=== PATIENT | male | born 1995 | race African-American/Black ===

== ENCOUNTER 2020-04-23 03:39 | Inpatient (IN) | payer OTHER ==
[~2020-04-23] VITALS: Ht 165.1 cm; Wt 63.8 kg
[2020-04-23 03:39] VITALS: BP 138/98
[2020-04-23 04:17] LABS: ANION GAP 11 mmol/L (7-16); BUN 20 mg/dL (7-18); CALCIUM 8.2 mg/dL (8.5-10.1); CHLORIDE 106 mmol/L (98-107); CO2 23 mmol/L (21-32); GLUCOSE 128 mg/dL (74-106); SODIUM 140 mmol/L (136-145)
[2020-04-23 04:18] LABS: POTASSIUM 4.1 mmol/L (3.5-5.1)
[2020-04-23 04:28] LABS: ALBUMIN 2.6 g/dL (3.4-5.0); MAGNESIUM 1.8 mg/dL (1.8-2.4); PHOSPHORUS 3.1 mg/dL (2.6-4.7); SGOT 41 U/L (15-37); SGPT 32 U/L (16-63); TOTAL BILIRUBIN 0.5 mg/dL (0.2-1.0); TOTAL PROTEIN 6.9 g/dL (6.4-8.2); TROPONIN-I <0.06 ng/mL (<0.06)
[2020-04-23 04:42] LABS: HEMOGLOBIN 9.9 gm/dL (14.0-18.0); WBC 2.7 thou/uL (4.0-11.0)
[2020-04-23 04:46] LABS: HEMATOCRIT 31.2 % (42.0-52.0); MCH 25.8 pg (26.0-34.0); MCHC 31.7 g/dL (28.0-37.0); MCV 81.3 fL (80.0-100.0); PLATELET COUNT 220 thou/uL (150-400); RBC 3.84 mil/uL (4.50-6.00); RDW 15.5 % (10.5-14.5)
[2020-04-23 05:28] LABS: ABSOLUTE NEUTROPHILS 0.9 thou/uL (1.4-8.2); ANISOCYTOSIS 1+; LARGE PLATELETS OCCASIONAL; NUCLEATED RBCS 1 /100WBC; POIKILOCYTOSIS 1+
--- NOTE | 2020-04-23 14:18 | EKG ---
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: JOSÉ MIGUEL : 1995 Requested By: Johnny Pascal Order Number: [id number] MD: Ko Stallings Measurements Intervals [place] Rate: 117 P: 64 MA: 130 QRS: 12 QRSD: 80 T: 208 QT: 344 QTc: 480 Interpretive Statements Sinus tachycardia Nonspecific ST and T wave abnormality Prolonged QT interval No previous ECG available for comparison Electronically Signed On 04-23-2020 14:18:52 CLINICAL RESEARCH ANALYST by Ko Stallings [email or web address] <ELECTRONICALLY SIGNED> By: Ko Stallings MD, [facility] 04/23/20 1418 0351 0351 Ko Stallings MD, FACC /EPI
--- NOTE | 2020-04-23 16:38 | HC ---
[facility] [place] [address] CONSULTATION Name: PÉREZ TAN Room #: 170-6 ADM IN M.R.#: [id number] Admission: 04/23/20 Attend Phys: Deng Hu MD Discharge: Date of : [birth year] Report #: [id number] THIS REPORT FOR: cc: FAM - No family physician/PCP FAM - No family physician/PCP Hebert Diaz MD ~ DATE OF SERVICE: 04/23/2020 INFECTIOUS DISEASE CONSULTATION ATTENDING PHYSICIAN: Dr. Hu. REASON FOR EVALUATION: HIV management. HISTORY OF SUBJECTIVE: Chart reviewed, the patient examined. This is a 24-year-old gentleman with known HIV disease. He states diagnosed in 2018, had been followed intermittently had been on therapy. He describes Biktarvy about a month ago when he discontinued due to a red splotchy rash. He noted prior to discontinuation, his viral load has been undetectable. He is not certain about his CD4 count. He was over the course of the last 2 weeks, diagnosed with pneumonitis. He was treated with a 7-day course of antibiotics for which he took 5 days. He has had ongoing issues with breathing difficulties, cough, also more recently has had obstipation with no bowel movement last several days, presented to the Emergency Room complaining of increasing shortness of breath, mucus production with productive cough while there earlier today apparently had a seizure, which had not been notable in his previous history, and elevated proBNP of 10,102. Influenza antigen was negative. COVID antigen was negative as well. Lactic acid 1.3. CBC did show leukopenia as well as anemia. CTA chest PE protocol showed no evidence of PE, cardiomegaly, bilateral mild infiltrates, question of a multifocal pneumonia, characteristically does not have appearance similar to COVID related pneumonitis. Plain film of the abdomen showed nonobstructive bowel gas pattern. He was given a dose of azithromycin and ceftriaxone as well. ALLERGIES: None known. MEDICATIONS: Include above noted antibiotics, senna, guaifenesin, ipratropium and albuterol inhaler. PAST MEDICAL HISTORY: As described above, HIV, previous right leg surgery. 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 FAMILY HISTORY: Noncontributory. [facility] [address] [place] [address] CONSULTATION Name: PÉREZ TAN Room #: 170-6 ADM IN M.R.#: [id number] Admission: 04/23/20 Attend Phys: Deng Hu MD Discharge: Date of : [birth year] Report #: [id number] REVIEW OF SYSTEMS: Otherwise, denies any recent fevers. Does have occasional chills. No weight loss. PHYSICAL EXAMINATION: GENERAL: He is mildly encephalopathic, appears to be reasonably well nourished, somewhat lethargic, still mildly postictal, mild distress. VITAL SIGNS: Temperature 97.4, pulse 114, respirations , blood pressure 121/88. SKIN: Warm, dry, no rashes. HEENT: Normocephalic. Extraocular muscles intact. NECK: Supple. LUNGS: Generally clear to auscultation bilaterally. HEART: Regular. I do not appreciate any murmur. ABDOMEN: Mildly distended, soft. There are no overt peritoneal signs. GENITOURINARY AND RECTAL: Deferred. LABORATORY DATA: As described above. CBC: White count 2.7, H and H 9.9 and 31.2, platelets of 220, 4% bands. He has got actually normal amount of lymphocytes of 33%, which was roughly 900 total. He did have 22% eosinophils as well. There is question of hypersensitivity. Lactic acid 1.3. ASSESSMENT: Human immunodeficiency virus infections, based on history. We will try to obtain records from his previous clinician. At this point, we would evaluate in terms of possible infectious causes based on the history suggest he has got a significant degree of immunosuppression for the long-term in terms of apparently undetectable viral load only diagnosed within the last couple of years, although it can entirely exclude. We will continue empiric antibiotics at this point, do additional testing. In terms of the seizure noted, Neurology has been consulted. We will work in conjunction may well need a lumbar puncture to exclude again an occult process is not entirely sure what the neutropenia related to as well as eosinophilia. <ELECTRONICALLY SIGNED> By: Hebert Diaz MD 04/23/20 1638 1006 1058 Hebert Diaz MD /nt
[2020-04-23 20:43] LABS: URINE BILIRUBIN NEGATIVE (Negative); URINE BLOOD NEGATIVE (Negative); URINE CLARITY CLEAR; URINE COLOR YELLOW; URINE GLUCOSE-RANDOM* NEGATIVE (Negative); URINE KETONES NEGATIVE (Negative); URINE LEUKOCYTES NEGATIVE (Negative); URINE NITRITE NEGATIVE (Negative); URINE PROTEIN (DIPSTICK) NEGATIVE (Negative); URINE UROBILINOGEN 0.2 E.U./dl (0.2-1.0)
[2020-04-23 20:49] LABS: AMP/METHAMP POSITIVE (Negative); BARBITURATES Negative (Negative); BENZODIAZEPINES Negative (Negative); COCAINE Negative (Negative); METHADONE Negative (Negative); OPIATES Negative (Negative); PCP Negative (Negative)
[2020-04-24] VITALS (112 sets, daily range): BP systolic 34–176; BP diastolic 13–155
[2020-04-24 05:13] LABS: HEMOGLOBIN 10.6 gm/dL (14.0-18.0); MCH 24.7 pg (26.0-34.0); MCHC 30.4 g/dL (28.0-37.0); MCV 81.4 fL (80.0-100.0); RBC 4.3 mil/uL (4.50-6.00); RDW 15.6 % (10.5-14.5); WBC 2.9 thou/uL (4.0-11.0)
[2020-04-24 06:03] LABS: CALCIUM 8.1 mg/dL (8.5-10.1); CREATININE 1.3 mg/dL (0.7-1.3); POTASSIUM 4.2 mmol/L (3.5-5.1)
--- NOTE | 2020-04-24 07:39 | 2DMMODE ---
[facility] [address] [place] [address] 2 D/M-MODE ECHOCARDIOGRAM Name: PÉREZ TAN Room #: 238-P ADM IN M.R.#: [id number] Admission: 04/23/20 Attend Phys: Deng Hu MD Discharge: Date of : [birth year] Report #: [id number] THIS REPORT FOR: cc: FAM - No family physician/PCP FAM - No family physician/PCP Ko Stallings MD [facility] ~ APPROVED REPORT Study performed: 04/24/2020 07:01:28 EXAM: Comprehensive 2D, Doppler, and color-flow Echocardiogram Patient Location: Bedside Room #: 238 Status: stat BSA: 1.65 HR: 103 bpm BP: 117/93 mmHg Rhythm: NSR Other Information Study Quality: Good Indications Dyspnea Elevated BNP S/P Code 2D Dimensions LV Single Plane 4CH: 11.28 % LV Single Plane 2CH: 21.51 % Biplane EF: 17.7 % Tricuspid Valve TR Peak Foreign.: 1.59 m/s RAP Estimate: 10.00 mmHg TR Peak Gr.: 10.17 mmHg PA Pressure: 20.00 mmHg Left Ventricle The left ventricle is normal size. There is global hypokinesis of the left ventricle. There is normal left ventricular wall thickness. Left ventricular systolic function is severely decreased. LVEF 15-20%. Right Ventricle [address] [address] 2 D/M-MODE ECHOCARDIOGRAM Name: PÉREZ TAN Room #: 238-P ADM IN M.R.#: [id number] Admission: 04/23/20 Attend Phys: Deng Hu MD Discharge: Date of : [birth year] Report #: [id number] The right ventricle is normal size. Right ventricle is mildly hypokinetic. Atria The left atrium size is normal. The right atrium size is normal. Aortic Valve The aortic valve is normal in structure. No aortic regurgitation is present. There is no aortic valvular stenosis. Mitral Valve The mitral valve is normal in structure. Moderate mitral regurgitation. No evidence of mitral valve stenosis. Tricuspid Valve The tricuspid valve is normal in structure. Moderate to severe tricuspid regurgitation. Pulmonary artery pressure is 20 mmHg. Pulmonic Valve The pulmonary valve is normal in structure. Mild pulmonic regurgitation. Great Vessels The aortic root is normal in size. IVC is dilated and collapses >50% with inspiration. Pt. on ventilator. Pericardium Small pericardial effusion without tamponade physiology. <Conclusion> Left ventricular systolic function is severely decreased. There is global hypokinesis of the left ventricle. LVEF 15-20%. The aortic valve is normal in structure. No aortic regurgitation or stenosis. The mitral valve is normal in structure. Moderate mitral regurgitation. Moderate to severe tricuspid regurgitation. Pulmonary artery pressure [address] [address] 2 D/M-MODE ECHOCARDIOGRAM Name: PÉREZ TAN Room #: 238-P ADM IN M.R.#: [id number] Admission: 04/23/20 Attend Phys: Deng Hu MD Discharge: Date of : [birth year] Report #: [id number] of 20 mmHg. Small pericardial effusion without tamponade physiology. <ELECTRONICALLY SIGNED> By: Ko Stallings MD, FACC 04/24/20738 8 8 Ko Stallings MD, FACC /INF
[2020-04-24 07:49] LABS: HEMATOCRIT 35.1 % (42.0-52.0); MCHC 28.6 g/dL (28.0-37.0); RBC 4.02 mil/uL (4.50-6.00); RDW 16.9 % (10.5-14.5); WBC 5.2 thou/uL (4.0-11.0)
[2020-04-24 07:50] LABS: ANION GAP 22 mmol/L (7-16); BUN 21 mg/dL (7-18); CALCIUM 7.6 mg/dL (8.5-10.1); CHLORIDE 109 mmol/L (98-107); CO2 13 mmol/L (21-32); CREATININE 1.8 mg/dL (0.7-1.3); GLUCOSE 113 mg/dL (74-106); MCV 87.3 fL (80.0-100.0); SODIUM 144 mmol/L (136-145)
[2020-04-24 07:52] LABS: ALBUMIN 2.2 g/dL (3.4-5.0); SGOT 115 U/L (15-37); SGPT 75 U/L (30-65); TOTAL BILIRUBIN 0.4 mg/dL (0.2-1.0); TOTAL PROTEIN 5.8 g/dL (6.4-8.2)
[2020-04-24 07:56] LABS: POTASSIUM 5.6 mmol/L (3.5-5.1)
[2020-04-24 08:04] LABS: APTT 35.5 Seconds (24.5-32.8); INR 1.2; PROTIME 12.8 Seconds (9.3-11.4)
[2020-04-24 08:17] LABS: TROPONIN-I <0.06 ng/mL (<0.06)
[2020-04-24 08:33] LABS: BE(vivo) -20.1 mmol/L (-2 to +3); HCO3 8.6 mmol/L (22.0-26.0); PCO2 29.9 mmHg (35.0-45.0); PO2 621.4 mmHg (80.0-100.0); sO2 99.9 % (92.0-98.0)
[2020-04-24 08:35] LABS: pH 7.077 (7.360-7.450)
[2020-04-24 09:01] LABS: MAGNESIUM 2.1 mg/dL (1.8-2.4); PHOSPHORUS 8.2 mg/dL (2.5-4.9)
--- NOTE | 2020-04-24 09:05 | EKG ---
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 : 1995 Requested By: May Arnold Order Number: [id number] MD: Ko Stallings Measurements Intervals [place] Rate: 99 P: 75 MA: 143 QRS: 28 QRSD: 67 T: 132 QT: 427 QTc: 549 Interpretive Statements Sinus rhythm RSR' in V1 or V2, probably normal variant Nonspecific repol abnormality, diffuse leads Prolonged QT interval Compared to ECG 04/23/2020 03:51:23 Nonspecific change in the ST and T wave segments Electronically Signed On 04-24-2020 9:05:28 RESIDENTIAL INSTRUCTOR by Ko Stallings [email or web address] <ELECTRONICALLY SIGNED> By: Ko Stallings MD, FACC 04/24/20 0905 0735 Ko Stallings MD, [facility] /EPI
[2020-04-24 10:47] LABS: CALCIUM 7.1 mg/dL (8.5-10.1); CREATININE 1.9 mg/dL (0.7-1.3)
[2020-04-24 10:53] LABS: POTASSIUM 6.1 mmol/L (3.5-5.1)
[2020-04-24 11:02] LABS: BE(vivo) -13.3 mmol/L (-2 to +3); PCO2 31.6 mmHg (35.0-45.0); PO2 291.9 mmHg (80.0-100.0); sO2 99.6 % (92.0-98.0)
[2020-04-24 11:05] LABS: pH 7.233 (7.360-7.450)
--- NOTE | 2020-04-24 11:18 | HC ---
[facility] [place] [address] CONSULTATION Name: PÉREZ TAN Room #: 238-P ADM IN M.R.#: [id number] Admission: 04/23/20 Attend Phys: Deng Hu MD Discharge: Date of : [birth year] Report #: [id number] THIS REPORT FOR: cc: FAM - No family physician/PCP FAM - No family physician/PCP Miller Sena MD [facility] ~ DATE OF SERVICE: 04/23/2020 CARDIOLOGY CONSULTATION HISTORY OF PRESENT ILLNESS: The patient is a 24-year-old male, HIV positive. He has been dealing with recurrent pneumonia, bronchial pneumonia, bronchitis, and pneumonitis since January. He has not been in this hospital before today, when he presented to the Emergency Room last night. He apparently was not completed on his last course of antibiotics. He is also in between his HIV medicines. He is down here going to [place] and he is trying to get an LIGHTER. Also, some history of a relatively recent onset seizure. It looks like he really has not been taking any of the appropriate medications and stopped the antibiotics. The chest x-ray had some cardiomegaly, some cephalization consistent with some pulmonary edema. CTA did not reveal any evidence of a PE. He is currently going to have a CT of his abdomen and pelvis. He had been taking Zithromax. He got dose of ceftriaxone here, lorazepam to calm him down. LABORATORY DATA: Potassium 4.1, creatinine 1.0. Liver function tests were normal. AST was 41. Troponin was negative. H and H are 9.9 and 31.2. White count 2.7. Blood cultures have been sent. The BNP was elevated over 10,000. SOCIAL HISTORY: He lives down here with his partner. He has an alternative lifestyle. He is a half a pack a day smoker, social drinker. FAMILY HISTORY: Negative for premature coronary artery disease. PAST MEDICAL HISTORY: Positive for the HIV, his recurrent bronchitis, pneumonia issue for the last 2 months and leg surgery. PHYSICAL EXAMINATION: GENERAL: He is not in distress. Pulse is 120. VITAL SIGNS: Blood pressure 134/90. HEENT: Eyes reveal xanthelasmas. Pharynx is clear. NECK: Shows preserved upstrokes without any significant JVD or bruits. LUNGS: Few fine basilar crackles, otherwise clear anteriorly. CARDIOVASCULAR: Tachycardic, S1 and S2. No significant murmur, narrowly split second heart sound. ABDOMEN: Diffusely tender, more in the right upper quadrant, although bowel sounds are noted. [address] [address] CONSULTATION Name: PÉREZ TAN Room #: 238-P [facility] IN M.R.#: [id number] Admission: 04/23/20 Attend Phys: Deng Hu MD Discharge: Date of : [birth year] Report #: [id number] EXTREMITIES: Reveal no edema. Pulses intact. NEUROLOGIC: Nonfocal. SKIN: Warm and dry without xanthoma or ulcer. Multiple tattoos. ASSESSMENT: 1. Cardiomegaly with mild volume overload with elevated BNP and chest x-ray supporting this. 2. Bronchitis/pneumonia with multiple occurrences in the last 2 months. Currently being treated with IV antibiotics. 3. Human immunodeficiency virus positive, currently off of his triple therapy. 4. COVID is pending, although this clinical presentation does not appear to be COVID pneumonia. 5. EKG, sinus tachycardia with nonspecific ST abnormalities, do not expect ischemia in a 24-year-old male. 6. Anemia. RECOMMENDATIONS AND PLAN: We will IV Lasix, Infectious Disease recommendations. Repeat a chest x-ray in the morning. Echo Doppler in the morning. Certainly could represent either some component of HIV involvement of myocarditis would be less likely. Multiple potential causes for cardiomyopathy in this young male. We will follow with you. <ELECTRONICALLY SIGNED> By: Miller Sena MD, FACC 04/24/20 1118 1026 1136 Miller Sena MD, FACC /nt
[2020-04-24 13:11] LABS: ALBUMIN 1.9 g/dL (3.4-5.0); DIRECT BILIRUBIN 0.4 mg/dL (<0.1-0.2); TOTAL BILIRUBIN 0.8 mg/dL (0.2-1.0); TOTAL PROTEIN 5.5 g/dL (6.4-8.2); TROPONIN-I 0.13 ng/mL (<0.06)
[2020-04-24 14:08] LABS: HEMATOCRIT 33.6 % (42.0-52.0); HEMOGLOBIN 10.1 gm/dL (14.0-18.0); RBC 3.94 mil/uL (4.50-6.00); WBC 4.6 thou/uL (4.0-11.0)
[2020-04-24 14:10] LABS: MCH 25.7 pg (26.0-34.0); MCHC 30.1 g/dL (28.0-37.0); MCV 85.3 fL (80.0-100.0); PLATELET COUNT 129 thou/uL (150-400); RDW 16.3 % (10.5-14.5)
[2020-04-24 14:15] LABS: CALCIUM 6.1 mg/dL (8.5-10.1); CREATININE 1.8 mg/dL (0.7-1.3); MAGNESIUM 1.6 mg/dL (1.8-2.4)
[2020-04-24 14:21] LABS: POTASSIUM 6.2 mmol/L (3.5-5.1)
[2020-04-24 15:27] LABS: ABSOLUTE NEUTROPHILS 2.9 thou/uL (1.4-8.2); METAMYELOCYTES 1 %
[2020-04-24 15:28] LABS: ANISOCYTOSIS 1+; PLATELET ESTIMATE NORMAL; SCHISTOCYTES RARE
[2020-04-24 16:27] LABS: APTT 36.6 Seconds (24.5-32.8); INR 1.6; PROTIME 16.9 Seconds (9.3-11.4)
[2020-04-24 19:55] LABS: HEMOGLOBIN 10.8 gm/dL (14.0-18.0); MCH 25.5 pg (26.0-34.0); MCHC 30.7 g/dL (28.0-37.0); PLATELET COUNT 127 thou/uL (150-400); RBC 4.21 mil/uL (4.50-6.00); RDW 16.2 % (10.5-14.5)
[2020-04-24 20:04] LABS: APTT 33.5 Seconds (24.5-32.8); CALCIUM 6.3 mg/dL (8.5-10.1); INR 1.5; MAGNESIUM 1.6 mg/dL (1.8-2.4); PHOSPHORUS 5.3 mg/dL (2.6-4.7); PROTIME 16.5 Seconds (9.3-11.4)
[2020-04-24 20:07] LABS: POTASSIUM 4.2 mmol/L (3.5-5.1)
[2020-04-24 20:22] LABS: ABSOLUTE NEUTROPHILS 4.7 thou/uL (1.4-8.2); METAMYELOCYTES 1 %
[2020-04-24 20:23] LABS: ANISOCYTOSIS 1+
[2020-04-25] VITALS (86 sets, daily range): BP systolic 81–129; BP diastolic 37–98
[2020-04-25 05:32] LABS: HEMATOCRIT 35.4 % (42.0-52.0); MCH 25.3 pg (26.0-34.0); MCV 81.8 fL (80.0-100.0); PLATELET COUNT 109 thou/uL (150-400); RBC 4.33 mil/uL (4.50-6.00); RDW 15.9 % (10.5-14.5); WBC 4.6 thou/uL (4.0-11.0)
[2020-04-25 06:04] LABS: APTT 33.5 Seconds (24.5-32.8); INR 1.5; PROTIME 16.1 Seconds (9.3-11.4)
[2020-04-25 06:28] LABS: CALCIUM 6.9 mg/dL (8.5-10.1); POTASSIUM 3.5 mmol/L (3.5-5.1)
[2020-04-25 06:29] LABS: MAGNESIUM 1.4 mg/dL (1.8-2.4); PHOSPHORUS 4.6 mg/dL (2.5-4.9); TROPONIN-I 0.18 ng/mL (<0.06)
[2020-04-25 07:12] LABS: HCO3 19.8 mmol/L (22.0-26.0); PCO2 35.8 mmHg (35.0-45.0); PO2 176.8 mmHg (80.0-100.0); pH 7.361 (7.360-7.450); sO2 99.2 % (92.0-98.0)
[2020-04-25 08:44] LABS: ABSOLUTE NEUTROPHILS 3.4 thou/uL (1.4-8.2); PLATELET ESTIMATE NORMAL
[2020-04-26] VITALS (85 sets, daily range): BP systolic 96–124; BP diastolic 50–82
[2020-04-26 04:55] LABS: HEMATOCRIT 32.3 % (42.0-52.0); HEMOGLOBIN 10.2 gm/dL (14.0-18.0); MCH 25.4 pg (26.0-34.0); MCHC 31.7 g/dL (28.0-37.0); MCV 80.1 fL (80.0-100.0); RBC 4.03 mil/uL (4.50-6.00); RDW 15.6 % (10.5-14.5); WBC 4.9 thou/uL (4.0-11.0)
[2020-04-26 05:21] LABS: BE(vivo) -1.5 mmol/L (-2 to +3); HCO3 22.5 mmol/L (22.0-26.0); PCO2 35.3 mmHg (35.0-45.0); PO2 142.7 mmHg (80.0-100.0); pH 7.422 (7.360-7.450); sO2 98.9 % (92.0-98.0)
[2020-04-26 05:24] LABS: ALBUMIN 1.9 g/dL (3.4-5.0); CALCIUM 7.1 mg/dL (8.5-10.1); CREATININE 2.4 mg/dL (0.7-1.3); PHOSPHORUS 5.1 mg/dL (2.5-4.9); POTASSIUM 3.3 mmol/L (3.5-5.1)
[2020-04-27] VITALS (74 sets, daily range): BP systolic 87–124; BP diastolic 43–91
[2020-04-27 06:12] LABS: ALBUMIN 1.8 g/dL (3.4-5.0); CALCIUM 7.3 mg/dL (8.5-10.1); CREATININE 2.3 mg/dL (0.7-1.3); PHOSPHORUS 5.5 mg/dL (2.6-4.7); POTASSIUM 4.1 mmol/L (3.5-5.1)
[2020-04-27 08:42] LABS: T-SPOT.TB Negative
[2020-04-27 20:33] LABS: SYPHILIS AB Non Reactive (Non Reactive)
[2020-04-28] VITALS (97 sets, daily range): BP systolic 88–129; BP diastolic 42–96
[2020-04-28 03:50] LABS: BE(vivo) -4.5 mmol/L (-2 to +3); HCO3 19.7 mmol/L (22.0-26.0); PCO2 33.2 mmHg (35.0-45.0); PO2 103.5 mmHg (80.0-100.0); pH 7.391 (7.360-7.450); sO2 97.8 % (92.0-98.0)
[2020-04-28 06:14] LABS: ALBUMIN 1.8 g/dL (3.4-5.0); CALCIUM 7.5 mg/dL (8.5-10.1); CREATININE 2.1 mg/dL (0.7-1.3); PHOSPHORUS 4.5 mg/dL (2.5-4.9); POTASSIUM 4.1 mmol/L (3.5-5.1)
--- NOTE | 2020-04-28 10:54 | EEG ---
[facility] [place] [address] ELECTROENCEPHALOGRAM Name: PÉREZ TAN Room #: 238-P ADM IN M.R.#: [id number] Admission: 04/23/20 Attend Phys: Deng Hu MD Discharge: Date of : [birth year] Report #: [id number] THIS REPORT FOR: //name// DATE OF SERVICE: 04/26/2020 This patient is being evaluated for encephalopathy. EEG was done by placing the electrode by standard 10-20 system of electrode placement. Both referential and sequential montages were used for recording. Background activity is slow, but goes up to 6-7 Hz. It is intermixed slowing present on both sides. Photic stimulation is unremarkable. IMPRESSION: This is an abnormal EEG because it is slow, but well-defined cortical activity is present. No active epileptiform activity was noticed. Thank you very much for this referral. <ELECTRONICALLY SIGNED> By: Shayan Ng MD 04/28/20 1054 1329 1336 Shayan Ng MD /nt
[2020-04-29] VITALS (35 sets, daily range): BP systolic 82–117; BP diastolic 49–84
[2020-04-29 05:29] LABS: HEMATOCRIT 28.8 % (42.0-52.0)
[2020-04-29 05:30] LABS: HEMOGLOBIN 8.9 gm/dL (14.0-18.0); MCH 25.2 pg (26.0-34.0); MCHC 31.1 g/dL (28.0-37.0); MCV 80.9 fL (80.0-100.0); RBC 3.56 mil/uL (4.50-6.00)
[2020-04-29 05:36] LABS: CALCIUM 7.9 mg/dL (8.5-10.1); CREATININE 1.9 mg/dL (0.7-1.3); POTASSIUM 4.2 mmol/L (3.5-5.1)
[2020-04-29 07:36] LABS: WBC 1.9 thou/uL (4.0-11.0)
[2020-04-29 13:35] LABS: ALBUMIN 1.8 g/dL (3.4-5.0); DIRECT BILIRUBIN 0.3 mg/dL (<0.1-0.2); TOTAL BILIRUBIN 0.5 mg/dL (0.2-1.0); TOTAL PROTEIN 5.8 g/dL (6.4-8.2)
[2020-04-30] VITALS (67 sets, daily range): BP systolic 91–129; BP diastolic 54–95
[2020-04-30 04:24] LABS: HEMATOCRIT 20.4 % (42.0-52.0); MCH 25.6 pg (26.0-34.0); MCHC 31.3 g/dL (28.0-37.0); MCV 81.8 fL (80.0-100.0); RBC 2.49 mil/uL (4.50-6.00); RDW 15.4 % (10.5-14.5)
[2020-04-30 04:26] LABS: WBC 1.5 thou/uL (4.0-11.0)
[2020-04-30 04:27] LABS: HEMOGLOBIN 6.4 gm/dL (14.0-18.0)
[2020-04-30 04:33] LABS: CALCIUM 7.7 mg/dL (8.5-10.1); CREATININE 1.6 mg/dL (0.7-1.3); POTASSIUM 4.2 mmol/L (3.5-5.1)
[2020-05-01] VITALS (45 sets, daily range): BP systolic 88–112; BP diastolic 49–72
[2020-05-01 05:13] LABS: ABSOLUTE RETIC COUNT 0.0476 10^6/uL; OBSERVED RETIC COUNT 1.28 % (0.6-2.6)
[2020-05-01 05:18] LABS: HEMATOCRIT 30.5 % (42.0-52.0); MCH 25.5 pg (26.0-34.0); MCHC 31.6 g/dL (28.0-37.0); MCV 80.6 fL (80.0-100.0); RBC 3.78 mil/uL (4.50-6.00); RDW 15.3 % (10.5-14.5); WBC 2.3 thou/uL (4.0-11.0)
[2020-05-01 05:19] LABS: HEMOGLOBIN 9.7 gm/dL (14.0-18.0)
[2020-05-01 05:19] LABS: BE(vivo) -4.6 mmol/L (-2 to +3); HCO3 19.7 mmol/L (22.0-26.0); PCO2 34.7 mmHg (35.0-45.0); PO2 135.5 mmHg (80.0-100.0); pH 7.373 (7.360-7.450); sO2 98.7 % (92.0-98.0)
[2020-05-01 05:36] LABS: ALBUMIN 1.6 g/dL (3.4-5.0); CALCIUM 7.8 mg/dL (8.5-10.1); CREATININE 1.3 mg/dL (0.7-1.3); TOTAL BILIRUBIN 0.5 mg/dL (0.2-1.0); TOTAL PROTEIN 6.2 g/dL (6.4-8.2)
[2020-05-01 08:30] LABS: % SATURATION 5 % (20-39); IRON 10 ug/dL (65-175); TIBC 198 ug/dL (250-450)
[2020-05-01 09:02] LABS: FOLIC ACID 3.2 ng/mL (8.6-58.9)
[2020-05-01 13:07] LABS: CD4 % 1.1 % (30.8-58.5); CD8 % 64.4 % (12.0-35.5)
[2020-05-02] VITALS (41 sets, daily range): BP systolic 80–107; BP diastolic 38–74
[2020-05-02 01:06] LABS: HAV IgM AB (ANTI-HAV IgM) Negative (Negative); HEP B SURFACE Ab(ANTI-HBS Non Reactive (()); HEPATITIS C VIRUS AB <0.1 (0.0-0.9)
[2020-05-02 08:21] LABS: HEMATOCRIT 29.2 % (42.0-52.0); HEMOGLOBIN 9.2 gm/dL (14.0-18.0)
[2020-05-02 08:23] LABS: MCH 25.6 pg (26.0-34.0); MCHC 31.4 g/dL (28.0-37.0); MCV 81.3 fL (80.0-100.0); PLATELET COUNT 130 thou/uL (150-400); RBC 3.59 mil/uL (4.50-6.00); RDW 15.7 % (10.5-14.5); WBC 2.2 thou/uL (4.0-11.0)
[2020-05-02 08:38] LABS: ALBUMIN 1.6 g/dL (3.4-5.0); CALCIUM 8.2 mg/dL (8.5-10.1); CREATININE 1.6 mg/dL (0.7-1.3); POTASSIUM 4.7 mmol/L (3.5-5.1); TOTAL BILIRUBIN 0.4 mg/dL (0.2-1.0); TOTAL PROTEIN 6.4 g/dL (6.4-8.2)
[2020-05-02 10:28] LABS: ABSOLUTE NEUTROPHILS 0.8 thou/uL (1.4-8.2); METAMYELOCYTES 2 %
[2020-05-02 13:11] LABS: OVALOCYTES 1+; TARGET CELLS FEW
[2020-05-02 13:12] LABS: POLYCHROMASIA 1+
[2020-05-03] VITALS (26 sets, daily range): BP systolic 89–102; BP diastolic 44–69
[2020-05-03 08:11] LABS: HEMOGLOBIN 8.8 gm/dL (14.0-18.0)
[2020-05-03 08:12] LABS: HEMATOCRIT 27.9 % (42.0-52.0); MCH 25.4 pg (26.0-34.0); MCHC 31.5 g/dL (28.0-37.0); MCV 80.8 fL (80.0-100.0); PLATELET COUNT 177 thou/uL (150-400); RBC 3.46 mil/uL (4.50-6.00); RDW 15.7 % (10.5-14.5)
[2020-05-03 08:17] LABS: WBC 1.9 thou/uL (4.0-11.0)
[2020-05-03 08:31] LABS: ALBUMIN 1.8 g/dL (3.4-5.0); CALCIUM 8.1 mg/dL (8.5-10.1); CREATININE 1.6 mg/dL (0.7-1.3); POTASSIUM 4.6 mmol/L (3.5-5.1); TOTAL BILIRUBIN 0.4 mg/dL (0.2-1.0); TOTAL PROTEIN 6.8 g/dL (6.4-8.2)
[2020-05-03 10:08] LABS: CD4:CD8 0.02 (0.92-3.72)
[2020-05-03 11:05] LABS: ABSOLUTE NEUTROPHILS 0.6 thou/uL (1.4-8.2); ANISOCYTOSIS 1+; ATYPICAL LYMPHS 4 %; LARGE PLATELETS OCCASIONAL; OVALOCYTES FEW; POIKILOCYTOSIS SLIGHT; TEARDROPS OCCASIONAL
[2020-05-04] VITALS (47 sets, daily range): BP systolic 88–102; BP diastolic 45–63
[2020-05-04 05:33] LABS: HEMATOCRIT 27.5 % (42.0-52.0); HEMOGLOBIN 8.7 gm/dL (14.0-18.0); MCH 25.5 pg (26.0-34.0); MCHC 31.7 g/dL (28.0-37.0); MCV 80.4 fL (80.0-100.0); PLATELET COUNT 177 thou/uL (150-400); RBC 3.42 mil/uL (4.50-6.00); WBC 2.2 thou/uL (4.0-11.0)
[2020-05-04 05:42] LABS: CALCIUM 8.2 mg/dL (8.5-10.1); CREATININE 1.7 mg/dL (0.7-1.3); TOTAL BILIRUBIN 0.3 mg/dL (0.2-1.0); TOTAL PROTEIN 6.9 g/dL (6.4-8.2)
[2020-05-04 06:44] LABS: ABSOLUTE NEUTROPHILS 1.1 thou/uL (1.4-8.2); LARGE PLATELETS FEW; NUCLEATED RBCS 1 /100WBC; PLATELET ESTIMATE NORMAL
[2020-05-04 14:08] LABS: EBV DNA log10 PCR 2.288 (())
[2020-05-05] VITALS (29 sets, daily range): BP systolic 91–112; BP diastolic 51–71
[2020-05-05 04:32] LABS: HEMOGLOBIN 8.2 gm/dL (14.0-18.0); MCV 80.5 fL (80.0-100.0); RDW 16.1 % (10.5-14.5)
[2020-05-05 04:34] LABS: HEMATOCRIT 25.6 % (42.0-52.0); MCH 25.6 pg (26.0-34.0); MCHC 31.8 g/dL (28.0-37.0); RBC 3.18 mil/uL (4.50-6.00)
[2020-05-05 04:38] LABS: WBC 1.7 thou/uL (4.0-11.0)
[2020-05-05 05:10] LABS: ALBUMIN 2.2 g/dL (3.4-5.0); CALCIUM 8.4 mg/dL (8.5-10.1); CREATININE 1.9 mg/dL (0.7-1.3); TOTAL BILIRUBIN 0.3 mg/dL (0.2-1.0)
[2020-05-05 05:54] LABS: POTASSIUM 5.2 mmol/L (3.5-5.1)
[2020-05-05 16:11] LABS: BE(vivo) -6.6 mmol/L (-2 to +3); HCO3 18.4 mmol/L (22.0-26.0); PCO2 34.3 mmHg (35.0-45.0); PO2 125.2 mmHg (80.0-100.0); pH 7.347 (7.360-7.450); sO2 98.4 % (92.0-98.0)
[2020-05-06 04:37] LABS: BE(vivo) -5.2 mmol/L (-2 to +3); HCO3 19.2 mmol/L (22.0-26.0); PO2 137.9 mmHg (80.0-100.0); pH 7.383 (7.360-7.450); sO2 98.7 % (92.0-98.0)
[2020-05-06 05:14] LABS: RBC 3.15 mil/uL (4.50-6.00)
[2020-05-06 05:16] LABS: HEMATOCRIT 25.3 % (42.0-52.0); HEMOGLOBIN 8.1 gm/dL (14.0-18.0); MCH 25.6 pg (26.0-34.0); MCHC 31.9 g/dL (28.0-37.0); MCV 80.2 fL (80.0-100.0); PLATELET COUNT 247 thou/uL (150-400); RDW 16.1 % (10.5-14.5)
[2020-05-06 05:22] LABS: WBC 1.5 thou/uL (4.0-11.0)
[2020-05-06 05:26] LABS: ALBUMIN 2.1 g/dL (3.4-5.0); CALCIUM 8.2 mg/dL (8.5-10.1); CREATININE 1.7 mg/dL (0.7-1.3); TOTAL BILIRUBIN 0.5 mg/dL (0.2-1.0); TOTAL PROTEIN 6.9 g/dL (6.4-8.2)
[2020-05-06 06:08] LABS: ABSOLUTE NEUTROPHILS 0.8 thou/uL (1.4-8.2); ANISOCYTOSIS 1+; METAMYELOCYTES 4 %
[2020-05-07] VITALS (13 sets, daily range): BP systolic 102–114; BP diastolic 52–78
[2020-05-07 05:03] LABS: HCO3 19.8 mmol/L (22.0-26.0); PCO2 35.4 mmHg (35.0-45.0); PO2 133.1 mmHg (80.0-100.0); pH 7.366 (7.360-7.450); sO2 98.6 % (92.0-98.0)
[2020-05-07 05:29] LABS: HEMATOCRIT 25.1 % (42.0-52.0); HEMOGLOBIN 8.1 gm/dL (14.0-18.0); MCH 25.7 pg (26.0-34.0); MCHC 32.2 g/dL (28.0-37.0); MCV 79.6 fL (80.0-100.0); PLATELET COUNT 266 thou/uL (150-400); RBC 3.15 mil/uL (4.50-6.00); RDW 16.1 % (10.5-14.5)
[2020-05-07 05:33] LABS: WBC 1.4 thou/uL (4.0-11.0)
[2020-05-07 06:09] LABS: CALCIUM 8.4 mg/dL (8.5-10.1); CREATININE 1.6 mg/dL (0.7-1.3); POTASSIUM 5.1 mmol/L (3.5-5.1); TOTAL BILIRUBIN 0.3 mg/dL (0.2-1.0); TOTAL PROTEIN 6.9 g/dL (6.4-8.2)
[2020-05-07 06:16] LABS: ABSOLUTE NEUTROPHILS 0.7 thou/uL (1.4-8.2); ANISOCYTOSIS 1+
[2020-05-08] VITALS (45 sets, daily range): BP systolic 95–124; BP diastolic 58–82
[2020-05-08 04:06] LABS: CALCIUM 8.7 mg/dL (8.5-10.1); CREATININE 1.5 mg/dL (0.7-1.3); POTASSIUM 4.5 mmol/L (3.5-5.1)
[2020-05-08 04:26] LABS: HEMOGLOBIN 8.4 gm/dL (14.0-18.0); RDW 15.9 % (10.5-14.5)
[2020-05-08 04:28] LABS: HEMATOCRIT 26.6 % (42.0-52.0); MCH 25.5 pg (26.0-34.0); MCHC 31.8 g/dL (28.0-37.0); MCV 80.2 fL (80.0-100.0); RBC 3.31 mil/uL (4.50-6.00)
[2020-05-08 04:30] LABS: WBC 1.4 thou/uL (4.0-11.0)
[2020-05-09] VITALS (23 sets, daily range): BP systolic 87–121; BP diastolic 45–83
[2020-05-09 05:10] LABS: HEMATOCRIT 28.4 % (42.0-52.0); HEMOGLOBIN 9.1 gm/dL (14.0-18.0); MCH 25.8 pg (26.0-34.0); MCHC 32.1 g/dL (28.0-37.0); MCV 80.4 fL (80.0-100.0); RBC 3.53 mil/uL (4.50-6.00); RDW 15.8 % (10.5-14.5)
[2020-05-09 05:13] LABS: WBC 1.5 thou/uL (4.0-11.0)
[2020-05-09 05:32] LABS: CALCIUM 8.9 mg/dL (8.5-10.1); CREATININE 1.3 mg/dL (0.7-1.3); POTASSIUM 4.1 mmol/L (3.5-5.1)
[2020-05-10] VITALS (23 sets, daily range): BP systolic 90–120; BP diastolic 36–81
[2020-05-10 05:49] LABS: HEMATOCRIT 27.1 % (42.0-52.0); HEMOGLOBIN 8.5 gm/dL (14.0-18.0); MCH 25.3 pg (26.0-34.0); MCHC 31.5 g/dL (28.0-37.0); MCV 80.2 fL (80.0-100.0); RBC 3.38 mil/uL (4.50-6.00); RDW 15.8 % (10.5-14.5); WBC 2.7 thou/uL (4.0-11.0)
[2020-05-10 06:41] LABS: CALCIUM 8.6 mg/dL (8.5-10.1); CREATININE 1.3 mg/dL (0.7-1.3); POTASSIUM 3.9 mmol/L (3.5-5.1)
[2020-05-10 09:54] LABS: BE(vivo) 1.3 mmol/L (-2 to +3); HCO3 25.7 mmol/L (22.0-26.0); PCO2 40.1 mmHg (35.0-45.0); PO2 132.3 mmHg (80.0-100.0); pH 7.425 (7.360-7.450); sO2 98.7 % (92.0-98.0)
[2020-05-10 17:04] LABS: ALBUMIN 2.1 g/dL (3.4-5.0); DIRECT BILIRUBIN 0.2 mg/dL (<0.1-0.2); TOTAL BILIRUBIN 0.3 mg/dL (0.2-1.0); TOTAL PROTEIN 7.6 g/dL (6.4-8.2)
[2020-05-10 19:02] LABS: URINE BILIRUBIN NEGATIVE (Negative); URINE BLOOD 3+ (Negative); URINE CLARITY CLEAR; URINE COLOR YELLOW; URINE GLUCOSE-RANDOM* NEGATIVE (Negative); URINE KETONES NEGATIVE (Negative); URINE LEUKOCYTES-REFLEX NEGATIVE (Negative); URINE NITRITE-REFLEX NEGATIVE (Negative); URINE PROTEIN (DIPSTICK) NEGATIVE (Negative); URINE SPECIFIC GRAVITY 1.015 (1.005-1.035); URINE UROBILINOGEN 0.2 E.U./dl (0.2-1.0)
[2020-05-10 19:12] LABS: SQUAMOUS 0-3 Few /LPF (0-3); URINE WBC-REFLEX 0-5 Rare /HPF (0-5)
[2020-05-10 19:13] LABS: BACTERIA-REFLEX 1-9 Few /HPF (None Seen); CRYSTALS None Seen /LPF (None Seen); FINE GRANULAR CASTS 4-10 Moderate /LPF (None Seen); MUCUS 4-6 Moderate strn/LPF (None Seen)
[2020-05-11] VITALS (24 sets, daily range): BP systolic 107–123; BP diastolic 63–83
[2020-05-11 06:27] LABS: HEMATOCRIT 27.4 % (42.0-52.0); HEMOGLOBIN 8.8 gm/dL (14.0-18.0); MCH 25.9 pg (26.0-34.0); MCHC 32.2 g/dL (28.0-37.0); MCV 80.5 fL (80.0-100.0); RBC 3.4 mil/uL (4.50-6.00); RDW 16.1 % (10.5-14.5)
[2020-05-11 06:28] LABS: WBC 1.8 thou/uL (4.0-11.0)
[2020-05-11 06:29] LABS: CALCIUM 8.6 mg/dL (8.5-10.1); CREATININE 1.2 mg/dL (0.7-1.3); POTASSIUM 4.5 mmol/L (3.5-5.1)
[2020-05-12] VITALS (24 sets, daily range): BP systolic 95–113; BP diastolic 43–75
[2020-05-12 05:19] LABS: HEMOGLOBIN 9.4 gm/dL (14.0-18.0); MCH 26.3 pg (26.0-34.0); MCHC 32.5 g/dL (28.0-37.0); MCV 80.8 fL (80.0-100.0); RBC 3.59 mil/uL (4.50-6.00); RDW 15.7 % (10.5-14.5)
[2020-05-12 05:31] LABS: CALCIUM 8.9 mg/dL (8.5-10.1); CREATININE 1.2 mg/dL (0.7-1.3); POTASSIUM 4.3 mmol/L (3.5-5.1)
[2020-05-12 05:37] LABS: WBC 1.8 thou/uL (4.0-11.0)
[2020-05-13] VITALS (50 sets, daily range): BP systolic 74–118; BP diastolic 23–74
[2020-05-13 05:10] LABS: HEMOGLOBIN 9.5 gm/dL (14.0-18.0)
[2020-05-13 05:12] LABS: HEMATOCRIT 29.9 % (42.0-52.0); MCH 25.9 pg (26.0-34.0); MCHC 31.8 g/dL (28.0-37.0); MCV 81.5 fL (80.0-100.0); RBC 3.67 mil/uL (4.50-6.00); RDW 15.6 % (10.5-14.5)
[2020-05-13 05:15] LABS: CALCIUM 9.1 mg/dL (8.5-10.1); CREATININE 1.2 mg/dL (0.7-1.3); POTASSIUM 4.5 mmol/L (3.5-5.1)
[2020-05-13 05:18] LABS: WBC 1.8 thou/uL (4.0-11.0)
[2020-05-14] VITALS (49 sets, daily range): BP systolic 78–126; BP diastolic 29–82
[2020-05-14 04:16] LABS: CREATININE 1.3 mg/dL (0.7-1.3); POTASSIUM 4.5 mmol/L (3.5-5.1)
[2020-05-15] VITALS (24 sets, daily range): BP systolic 100–158; BP diastolic 43–104
[2020-05-15 04:51] LABS: HEMATOCRIT 27.3 % (42.0-52.0); HEMOGLOBIN 8.7 gm/dL (14.0-18.0); MCH 25.6 pg (26.0-34.0); MCHC 31.9 g/dL (28.0-37.0); MCV 80.2 fL (80.0-100.0); RBC 3.4 mil/uL (4.50-6.00); RDW 15.5 % (10.5-14.5); WBC 3.5 thou/uL (4.0-11.0)
[2020-05-15 04:58] LABS: CALCIUM 8.8 mg/dL (8.5-10.1); CREATININE 1.6 mg/dL (0.7-1.3); POTASSIUM 3.9 mmol/L (3.5-5.1)
[2020-05-16] VITALS (23 sets, daily range): BP systolic 87–161; BP diastolic 28–102
[2020-05-17] VITALS (23 sets, daily range): BP systolic 104–166; BP diastolic 60–116
[2020-05-17 02:39] LABS: HEMATOCRIT 30.5 % (42.0-52.0); HEMOGLOBIN 9.5 gm/dL (14.0-18.0); MCH 25.2 pg (26.0-34.0); MCHC 31.2 g/dL (28.0-37.0); MCV 80.8 fL (80.0-100.0); RBC 3.78 mil/uL (4.50-6.00); WBC 2.2 thou/uL (4.0-11.0)
[2020-05-17 03:25] LABS: ALBUMIN 2.3 g/dL (3.4-5.0); CALCIUM 8.6 mg/dL (8.5-10.1); CREATININE 1.6 mg/dL (0.7-1.3); POTASSIUM 3.3 mmol/L (3.5-5.1); TOTAL BILIRUBIN 0.9 mg/dL (0.2-1.0); TOTAL PROTEIN 7.9 g/dL (6.4-8.2)
--- NOTE | 2020-05-17 07:52 | 2DMMODE ---
[facility] [place] [address] 2 D/M-MODE ECHOCARDIOGRAM Name: PÉREZ TAN Room #: 238-P ADM IN M.R.#: [id number] Admission: 04/23/20 Attend Phys: Deng Hu MD Discharge: Date of : [birth year] Report #: [id number] THIS REPORT FOR: cc: BRANDAN - Latricia family physician/PCP FAM - No family physician/PCP Demetrius Little MD [facility] ~ APPROVED REPORT Study performed: 05/17/2020 06:46:12 EXAM: Limited 2D, Doppler, and color-flow Echocardiogram Patient Location: ICU Room #: 238 Status: routine BSA: 1.70 HR: 118 bpm BP: 118/7 mmHg Rhythm: Tachycardia Other Information Study Quality: Excellent Indications Limited follow up echo for LV function, cardiomyopathy. (15-20% on 04/24/20). Hx: PEA, tobacco and drug abuse. 2D Dimensions RVDd: 42.78 mm IVSd: 10.50 (7-11mm) LVDd: 57.38 mm PWd: 11.92 (7-11mm) LVDs: 50.72 (25-40mm) Volumes Left Atrial Volume (Systole) Single Plane 4CH: 56.98 mL Single Plane 2CH: 58.52 mL LA ESV Index: 37.00 mL/m2 Aortic Valve AoV Peak Foreign.: 1.44 m/s AO Peak Gr.: 8.25 mmHg Pulmonary Valve PV Peak Foreign.: 1.08 m/s PV Peak Gr.: 4.63 mmHg [facility] [address] [place] [address] 2 D/M-MODE ECHOCARDIOGRAM Name: PÉREZ TAN Room #: 238-P [facility] IN [place].#: [id number] Admission: 04/23/20 Attend Phys: Deng Hu MD Discharge: Date of : [birth year] Report #: [id number] Tricuspid Valve TR Peak Foreign.: 3.16 m/s RAP Estimate: 10.00 mmHg TR Peak Gr.: 40.00 mmHg PA Pressure: 50.00 mmHg Left Ventricle Left ventricle is at the upper limits of normal. There is normal left ventricular wall thickness. Left ventricular systolic function is severely decreased. LVEF is 25%. Right Ventricle Right ventricle is at the upper limits of normal. Right ventricle is mildly hypokinetic. Atria Left atrium is mildly dilated. The right atrium size is normal. Aortic Valve The aortic valve is normal in structure. No aortic regurgitation is present. There is no aortic valvular stenosis. Mitral Valve The mitral valve is normal in structure. Mild mitral regurgitation. No evidence of mitral valve stenosis. Tricuspid Valve The tricuspid valve is normal in structure. Mild tricuspid regurgitation. Estimated PAP is 45-50mmHg. Pulmonic Valve The pulmonary valve is normal in structure. Trace pulmonic regurgitation. Great Vessels IVC is normal in size and collapses <50% with inspiration. Pericardium Small pericardial effusion. <Conclusion> Left ventricle size in the upper limits of normal, normal wall thickness Severe global hypokinesis, ejection fraction 25% [facility] [address] [place] [address] 2 D/M-MODE ECHOCARDIOGRAM Name: PÉREZ TAN Room #: 238-P [facility] IN [facility]#: [id number] Admission: 04/23/20 Attend Phys: Deng Hu MD Discharge: Date of : [birth year] Report #: [id number] Right ventricle mildly dilated/hypokinetic Left atrium mildly dilated Color-flow Doppler study was performed of the aortic/mitral/tricuspid/pulmonary valve Normal aortic valve structure and function Mild mitral valve insufficiency Mild tricuspid valve insufficiency Pulmonary systolic pressure estimated at 45 mmHg Normal aortic root size Small posterior pericardial effusion <ELECTRONICALLY SIGNED> By: Demetrius Little MD, FACC 05/17/20 075 1 1 Demetrius Little MD, FACC /INF
[2020-05-18 05:55] VITALS: BP 118/64
--- NOTE | 2020-05-18 07:03 | EKG ---
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 : 1995 Requested By: Lavinia Jj Order Number: [id number] MD: Demetrius Little Measurements Intervals [place] Rate: 126 P: 65 FL: 154 QRS: -1 QRSD: 75 T: 107 QT: 294 QTc: 426 Interpretive Statements Sinus tachycardia Ventricular premature complex Aberrant complex Repol abnrm suggests ischemia, lateral leads Compared to ECG 04/24/2020 07:35:12 Ventricular premature complex(es) now present Aberrant conduction of supraventricular beat(s) now present Possible ischemia now present Sinus rhythm no longer present Prolonged QT interval no longer present Electronically Signed On 05-18-2020 7:02:59 CDT by Demetrius Little [email or web address] <ELECTRONICALLY SIGNED> By: Demetrius Little MD, FACC 05/18/20 0702 07 07 Demetrius Little MD, [facility] /EPI
[2020-05-18 07:45] VITALS: BP 141/71
[2020-05-18 10:42] LABS: CALCIUM 8.7 mg/dL (8.5-10.1); CREATININE 1.6 mg/dL (0.7-1.3); POTASSIUM 3.2 mmol/L (3.5-5.1)
[2020-05-18 11:37] VITALS: BP 101/56
[2020-05-18 20:10] VITALS: BP 137/93
[2020-05-19 04:00] VITALS: BP 118/71
[2020-05-19 06:43] LABS: CALCIUM 9.3 mg/dL (8.5-10.1); CREATININE 1.7 mg/dL (0.7-1.3); MAGNESIUM 1.3 mg/dL (1.8-2.4); POTASSIUM 3.4 mmol/L (3.5-5.1)
[2020-05-19 07:43] VITALS: BP 111/68
[2020-05-19 09:35] VITALS: BP 111/63
[2020-05-19] MEDS ORDERED: AZITHROMYC200 MG/52 PO (13:13)
[2020-05-19] MEDS ORDERED: BIKTARVY 50-201 EACH PO (13:14)
[2020-05-19] MEDS ORDERED: ARIXTRA SUBQ (13:14)
[2020-05-19] MEDS ORDERED: BACTRIM DS TAB1 EACH PO (13:14)
[2020-05-19] MEDS ORDERED: CARVEDILOL12.5 MG PO (13:15)
[2020-05-19] MEDS ORDERED: BENICAR20 MG PO (13:15)
[2020-05-19] MEDS ORDERED: K-DUR 20 MEQ T20 MEQ PO (13:16)
[2020-05-19] MEDS ORDERED: DEMADEX20 MG PO (13:16)
[2020-05-19] MEDS ORDERED: LACTULOSE20 GM/30 M PER TUBE (13:16)
[2020-05-19] MEDS ORDERED: MAGNESIUM400 MG PO (13:17)
[2020-05-19] MEDS ORDERED: FOLIC ACID1 MG PO (13:17)
== END 2020-05-19 18:50 | disposition left against medical advice (07) | DRG 207 ==
LOC: ER 03:39 → EROBS 05:52 → ICU 04-24 06:40 → 3W 05-17 21:08
PROVIDERS: Emergency Medicine; Hospitalist; Internal Medicine; Internal Medicine Hematology & Oncology; Internal Medicine Pulmonary Disease; Nurse Practitioner; Nurse Practitioner Adult Health; Nurse Practitioner Family; Pediatrics; Radiology Vascular & Interventional Radiology; Specialist; ADMIT Hospitalist; ATTEND Hospitalist
PROC: 0BH17EZ Insertion of Endotracheal Airway into Trachea, Via Natural or Artificial Opening (ICD-10-PCS; principal; 2020-04-24)
PROC: 02HV33Z Insertion of Infusion Device into Superior Vena Cava, Percutaneous Approach (ICD-10-PCS; principal; 2020-04-24)
PROC: 5A1955Z Respiratory Ventilation, Greater than 96 Consecutive Hours (ICD-10-PCS; principal; 2020-04-24)
PROC: 5A12012 Performance of Cardiac Output, Single, Manual (ICD-10-PCS; principal; 2020-04-24)
PROC: 0F9430Z Drainage of Gallbladder with Drainage Device, Percutaneous Approach (ICD-10-PCS; 2020-04-28)
PROC: 30233N1 Transfusion of Nonautologous Red Blood Cells into Peripheral Vein, Percutaneous Approach (ICD-10-PCS; 2020-04-30)
DX: J18.0 Bronchopneumonia, unspecified organism (principal); A41.9 Sepsis, unspecified organism; I46.9 Cardiac arrest, cause unspecified; I50.21 Acute systolic (congestive) heart failure; G92 Toxic encephalopathy; J96.21 Acute and chronic respiratory failure with hypoxia; E43 Unspecified severe protein-calorie malnutrition; B20 Human immunodeficiency virus [HIV] disease; I31.3 Pericardial effusion (noninflammatory); N17.9 Acute kidney failure, unspecified; E87.2 Acidosis; I42.8 Other cardiomyopathies; R18.8 Other ascites; K80.10 Calculus of gallbladder with chronic cholecystitis without obstruction; E87.0 Hyperosmolality and hypernatremia; D61.818 Other pancytopenia; F17.200 Nicotine dependence, unspecified, uncomplicated; I95.9 Hypotension, unspecified; F15.10 Other stimulant abuse, uncomplicated; E87.5 Hyperkalemia; E83.42 Hypomagnesemia; N18.9 Chronic kidney disease, unspecified; K75.9 Inflammatory liver disease, unspecified; R41.0 Disorientation, unspecified; G40.909 Epilepsy, unspecified, not intractable, without status epilepticus; Z68.23 Body mass index [BMI] 23.0-23.9, adult; Z20.822 Contact with and (suspected) exposure to COVID-19
CPT/HCPCS: 10078; 10879; 85076